=== PATIENT | female | born 1955 | race Caucasian/White ===

== ENCOUNTER 2016-10-15 11:09 | Emergency (ER) | payer OTHER | END 2016-10-15 14:15 | disposition home or self-care (01) | DX: C50.919 Malignant neoplasm of unspecified site of unspecified female breast (principal); Z92.21 Personal history of antineoplastic chemotherapy; R07.9 Chest pain, unspecified; R06.00 Dyspnea, unspecified ==

== ENCOUNTER 2018-09-03 21:47 | Outpatient (CLI) | payer OTHER ==
--- NOTE | 2018-09-03 23:15 | Ultrasound Report ---
Reason: LOCALIZED SWELLING,MASS AND LUMP,TRUNK Procedure Date: 09/03/2018 Accession Number: [id number] / [id number] Procedure: US - Chest CPT Code: FULL RESULT: EXAM: ULTRASOUND OF THE CHEST WALL EXAM DATE: 09/03/2018 10:56 PM. CLINICAL HISTORY: Localized swelling, mass and lump, trunk. There is a mass along the right chest wall just under the clavicle for 2 days, history of breast cancer. Right mastectomy for invasive ductal carcinoma one year ago. Finished undergoing treatment. COMPARISON: None. TECHNIQUE: Grayscale and color flow images are acquired. FINDINGS: At the site of clinical concern, there is a small hypoechoic cutaneous nodule measuring 2.3 x 2.1 x 1.9 mm. There is internal vascularity. This is somewhat rounded in appearance. This is just anterior to the subcutaneous fat. IMPRESSION: Nonspecific 2.3 mm hypoechoic lesion with internal vascularity at the site of clinical concern. This is difficult to further characterize. [facility] The call report notification system was initiated by Dr. Mariaelena aPul at 23:08 hrs on 09/03/18. The above findings were discussed with Dr. Cool by Dr. Mariaelena Paul at 23:13 hrs on 09/03/18.
== END 2018-09-03 21:48 | disposition home or self-care (01) ==
LOC: DI 21:47
PROVIDERS: ATTEND Nurse Practitioner Family
DX: R22.2 Localized swelling, mass and lump, trunk (principal)
CPT/HCPCS: 76604

== ENCOUNTER 2018-09-13 08:32 | Outpatient (CLI) | payer OTHER ==
--- NOTE | 2018-09-13 09:26 | CT Report ---
Reason: LOCALIZED SWELLING, MASS LUMP, TRUNK Procedure Date: 09/13/2018 Accession Number: [id number] / [id number] Procedure: CT - Chest W/O CPT Code: FULL RESULT: EXAM: CT CHEST WITHOUT CONTRAST EXAM DATE: 09/13/2018 08:44 AM. CLINICAL HISTORY: LOCALIZED SWELLING, MASS LUMP, TRUNK. History of breast cancer and right mastectomy. COMPARISONS: Ultrasound CHEST 09/03/2018 9:57 PM. TECHNIQUE: Routine helical CT imaging was performed through the chest. IV contrast: None. Reconstructions: Coronal and sagittal. In accordance with CT protocol optimization, one or more of the following dose reduction techniques were utilized for this exam: automated exposure control, adjustment of mA and/or KV based on patient size, or use of iterative reconstructive technique. FINDINGS: Lungs/Pleura: There is a small area of right posterior lateral peripheral irregular parenchymal opacity suggestive of scarring in the right upper lobe (series 4, images 17-20), which could be related to prior radiation therapy. A few pulmonary nodules are visualized: 1. There is a 3 mm nodule near the apex of the right upper lobe (series 4 image 13). 2. There is a 2 mm nodule in the right upper lobe (series 4 image 23). 3. There is a 3 mm pleural-based nodule at the posterior medial aspect of the right lower lobe (series 4 image 31). 4. There is a 2 mm nodule in the right middle lobe (series 4 image 37). No bronchial thickening, consolidation, or edema. Pulmonary vasculature is normal. No pericardial or pleural effusion. No pneumothorax. Mediastinum: Normal. No adenopathy or masses apparent on this noncontrast exam. The heart and great vessels are normal. Bones: Unremarkable. No acute osseous abnormality or bone lesion. Visualized Abdomen: There is an ovoid hypodense lesion in the right lobe of the liver measuring approximately 1.7 x 1.3 cm (series 3 image 67). The lesion is of intermediate hypodensity on this noncontrast exam, more dense than expected for a simple cyst. The visualized upper abdomen is otherwise unremarkable. Other: The patient is post right mastectomy. There is an ovoid lesion in the right axilla suspicious for a pathologically enlarged lymph node measuring 2.9 x 2.2 x 3.9 cm (series 3 image 18, and series 6 image 17). The tiny 2 mm superficial cutaneous nodule of the right chest wall seen on recent prior ultrasound is not apparent on CT. IMPRESSION: 1. Status post right mastectomy. There is a 3.9 cm right axillary mass suspicious for a pathologically enlarged metastatic lymph node. 2. There are four indeterminate pulmonary nodules in the right lung measuring 2-3 mm. 3. There is minimal scarring or postradiation change at the posterior lateral aspect of the superior portion of the right upper lobe. 4. Incidentally noted ovoid hypodense liver lesion measuring up to 1.7 cm. Lesion is indeterminate. Recommend further evaluation with liver protocol MRI (preferred) or CT, without and with intravenous. For lesions that are not suspected to represent hepatocellular carcinoma, tissue sampling is also a reasonable initial approach. Management above is based on recommendations outlined in an ACR White Paper: Marina Plunkett. et al. Management of Incidental Liver Lesions on CT: A White Paper of the ACR Incidental Findings Committee. Journal of the [employer] 0, (2017). 5. The tiny 2 mm superficial cutaneous nodule of the right chest wall seen on recent prior ultrasound is not visualized on CT. [facility]
== END 2018-09-13 08:33 | disposition home or self-care (01) ==
LOC: DI 08:32
PROVIDERS: ATTEND Nurse Practitioner Family
DX: R22.2 Localized swelling, mass and lump, trunk (principal); R22.31 Localized swelling, mass and lump, right upper limb; R91.8 Other nonspecific abnormal finding of lung field; K76.9 Liver disease, unspecified; Z90.11 Acquired absence of right breast and nipple
CPT/HCPCS: 71250

== ENCOUNTER 2020-02-02 09:24 | Outpatient (CLI) | payer OTHER | END 2020-02-02 23:59 | disposition home or self-care (01) | LOC: COV 09:24 | PROVIDERS: ATTEND Family Medicine | DX: R53.83 Other fatigue (principal); M79.10 Myalgia, unspecified site; J02.9 Acute pharyngitis, unspecified; Z20.828 Contact with and (suspected) exposure to other viral communicable diseases | CPT/HCPCS: 81599 ==

== ENCOUNTER 2022-06-12 14:32 | Emergency (ER) | payer MEDICARE, OTHER ==
--- NOTE | 2022-06-12 15:52 | ED Physician Documentation ---
PD HPI LOWER EXT INJURY - Stated complaint Stated Complaint: R LEG PAIN - Chief complaint Chief Complaint: Ext Problem - History obtained from History obtained from: Patient - History of Present Illness PD HPI LOW EXT INJURY LOCATION: Right, Calf Type of injury: Other (had plane ride 2 days ago with tight seating and now noting pain and tenderness right calf. On Tamoxifen and had been cautioned about higher risk for blood clots. Here for eval.). No: Fall, Twist Timing - onset: Last night Timing - details: Gradual onset, Still present Worsened by: Moving, Palpating Associated symptoms: No: Weakness, Numbness, Swelling Similar symptoms before: Has not had sx before Review of Systems Constitutional: denies: Fever, Chills Cardiac: reports: Calf pain. denies: Chest pain / pressure, Palpitations, Pedal edema Respiratory: denies: Dyspnea Skin: denies: Rash, Lesions Neurologic: denies: Focal weakness, Numbness PD PAST MEDICAL HISTORY - Past Medical History Past Medical History: Yes Cardiovascular: None Respiratory: None Neuro: None Endocrine/Autoimmune: None GI: None [employer] PROFESSOR: Breast cancer : None HEENT: None Psych: None Musculoskeletal: None, Other (prior breast cancer) Derm: Psoriasis - Past Surgical History Past Surgical History: Yes /[employer] PROFESSOR: Oophrectomy, Mastectomy - Present Medications Home Medications: Ambulatory Orders Medication Instructions Recorded Confirmed Tamoxifen Citrate 20 mg ORAL DAILY 06/12/22 06/12/22 - Allergies Allergies/Adverse Reactions: Allergies Allergy/AdvReac Type Severity Reaction Status Date / Time No Known Drug Allergies Allergy Verified 06/12/22 14:39 - Social History Does the pt smoke?: No Smoking Status: Never smoker Does the pt drink ETOH?: No Does the pt have substance abuse?: Yes Substance Use and Type: CBD oil / Products - Immunizations Immunizations are current?: Yes PD ED PE NORMAL - Vitals Vital signs reviewed: Yes - General General: Alert and oriented X 3, No acute distress, Well developed/nourished - Cardiac Cardiac: RRR, No murmur - Respiratory Respiratory: No respiratory distress, Clear bilaterally - Derm Derm: Normal color, Warm and dry - Extremities Extremities: No edema, Other (right calf posteriorly lateral with local area of tenderness. No redness, warmth, sores. ) - Neuro Neuro: Alert and oriented X 3, No motor deficit, No sensory deficit Results - Vitals Vitals: Vital Signs - 24 hr 06/12/22 06/12/22 14:39 16:00 Temperature 37 C 36.6 C Heart Rate 78 62 Respiratory 16 16 Rate Blood Pressure 117/62 100/54 L O2 Saturation 98 100 Oxygen O2 Source Room air - Rads (name of study) duplex right leg Radiology: Prelim report reviewed (no DVTs), See rad report PD MEDICAL DECISION MAKING - ED course Complexity details: reviewed results, considered differential, d/w patient Departure - Departure Disposition: 01 Home, Self Care Clinical Impression: Pain of right calf Clinical Impression: (Ruled Out): Deep vein thrombosis Condition: Stable Record reviewed to determine appropriate education?: Yes Instructions: ED Strain Muscle Ext Comments: Your ultrasound is negative without any signs of blood clots. Presume either a muscle strain or a local injury/contusion from your airplane travel. The accuracy of ultrasound for below-knee blood clots is 99% which is pretty darn good. However if you do notice increasing symptoms of pain swelling or edema in the lower leg, the ultrasound can be repeated in a week's time or so for the chance of having missed a very early 1. Otherwise I would anticipate improvement in your symptoms over the next few days. Tylenol ibuprofen as needed and activity as tolerated. Discharge Date/Time: 06/12/22 16:01
[2022-06-12 16:01] VITALS: BP 100/54
--- NOTE | 2022-06-12 16:03 | Ultrasound Report ---
PROCEDURE: Duplex Ext Veins Right INDICATIONS: RLE pain TECHNIQUE: Real-time imaging, as well as color and pulse Doppler interrogation, were performed of the lower extr emity deep veins from the inguinal ligament to the popliteal fossa. COMPARISON: None. FINDINGS: The deep veins are normally compressible, and free of intraluminal thrombus. Color and pu lse Doppler demonstrate normal phasic intraluminal flow. There is normal augmentation response to di stal compression maneuver. IMPRESSION: No deep venous thrombosis. Reviewed by: Emmie Noyola MD on 06/12/2022 4:02 PM PDT Approved by: Emmie Noyola MD on 06/12/2022 4:02 PM PDT Station ID: [id number]
== END 2022-06-12 16:01 | disposition home or self-care (01) ==
LOC: ED 14:32
DX: M79.661 Pain in right lower leg (principal)
CPT/HCPCS: 99282; 99284

== ENCOUNTER 2022-07-13 15:12 | Outpatient (CLI) | payer MEDICARE ==
--- NOTE | 2022-07-13 16:41 | XRAY Report ---
PROCEDURE: Chest 2 View X-Ray INDICATIONS: COUGH,FEVER,CHEST PAIN TECHNIQUE: 2 views COMPARISON: CT chest 09/13/2018 and chest ultrasound 09/03/2018. FINDINGS: Pneumonia or pneumothorax is not found but there is pulmonary hyperexpansion consistent with COPD. IMPRESSION: No sign of CHF, heart size is normal. Lung volumes are large, COPD is presumed. No pneumonia or pneum onitis found. Reviewed by: Mando Diaz MD on 07/13/2022 4:40 PM PDT Approved by: Mando Diaz MD on 07/13/2022 4:40 PM PDT Station ID: [id number]
== END 2022-07-13 15:13 | disposition home or self-care (01) ==
LOC: DI.S 15:12
PROVIDERS: ATTEND Family Medicine
DX: R05.9 Cough, unspecified (principal); R50.9 Fever, unspecified; R07.9 Chest pain, unspecified